=== PATIENT | male | born 1985 | race Caucasian/White ===

== ENCOUNTER 2023-01-19 12:01 | Emergency (ER) | payer OTHER ==
[~2023-01-19] VITALS: Ht 177.8 cm; Wt 101.2 kg
[2023-01-19] MEDS ORDERED: BIKTARVY 50-201 EACH PO (12:18)
[2023-01-19] MEDS ORDERED: LISDEXAMFETAMIN PO (12:18)
[2023-01-19 13:04] VITALS: BP 157/99
== END 2023-01-19 13:04 | disposition home or self-care (01) ==
LOC: ED 12:01
DX: M79.671 Pain in right foot (principal); Z79.899 Other long term (current) drug therapy
CPT/HCPCS: 73630